=== PATIENT | male | born 1975 ===

== ENCOUNTER 2020-05-31 09:41 | Emergency (ER) | payer OTHER ==
[2020-05-31] MEDS ORDERED: Sodium Chloride 0.9% 10 ML Syringe FLUSH PRN (10:03)
[2020-05-31] MEDS ORDERED: Ondansetron 4 MG/2 ML SDV IVPUSH ONE (10:04)
[2020-05-31] MEDS ORDERED: Sodium Chloride 0.9% 1,000 ML IV ONE (10:04)
[2020-05-31] MEDS ORDERED: Pantoprazole 40 MG Vial IVPUSH ONE (10:05)
--- NOTE | 2020-05-31 10:12 | EDM.PDOC ---
ED HPI GENERAL MEDICAL PROBLEM - General Chief Complaint: Abdominal Pain Stated Complaint: VOMITTING BLOOD DIZZY WEAK DIABETIC Time Seen by Provider: 05/31/20 10:00 Source of Information: Reports: Patient History Limitations: Reports: No Limitations - History of Present Illness INITIAL COMMENTS - FREE TEXT/NARRATIVE: Patient is here for nausea and vomiting. He has a history of cirrhosis and esophageal varicies with bleeding in the past. He was drinking last night and began to vomit this morning around 9 am. The vomit had blood in it so he came in for evaluation. He is also a poorly controlled diabetic with his glucose >500 on arrival. Onset: Today Abdomen Pain Score (Numeric/FACES): 8 - Related Data Allergies Allergy/AdvReac Type Severity Reaction Status Date / Time Penicillins Allergy Rash Verified 05/31/20 10:29 Home Meds: Home Meds . [Unable to Verify Home Med List] 05/31/20 [History] ED ROS GENERAL - Review of Systems Review Of Systems: Comprehensive ROS is negative, except as noted in HPI. ED EXAM, GI/ABD - Physical Exam Exam: See Below Exam Limited By: No Limitations General Appearance: Alert Eyes: Bilateral: Normal Appearance Ears: Normal External Exam Head: Atraumatic, Normocephalic Neck: Normal Inspection, Supple, Non-Tender, Full Range of Motion Respiratory/Chest: No Respiratory Distress, Lungs Clear, Normal Breath Sounds, No Accessory Muscle Use, Chest Non-Tender Cardiovascular: Normal Peripheral Pulses, Regular Rate, Rhythm, No Murmur, No Rub GI/Abdominal Exam: Normal Bowel Sounds, Soft, No Distention, Tender (ruq and llq). No: Guarding, Rebound (Male) Exam: Deferred Rectal (Males) Exam: Deferred Extremities: Normal Inspection, Normal Range of Motion Neurological: Alert, Oriented, Normal Cognition, Normal Gait Psychiatric: Normal Affect, Normal Mood Skin Exam: Warm, Dry, Intact, Normal Color, No Rash Lymphatic: No Adenopathy Course - Vital Signs Last Recorded V/S: Last Vital Signs Temp 98.4 F 05/31/20 10:29 Pulse 118 H 05/31/20 10:29 Resp 22 H 05/31/20 10:29 BP 127/106 H 05/31/20 10:29 Pulse Ox 100 05/31/20 10:29 - Orders/Labs/Meds Orders: Active Orders 24 hr Category Date Time Status Peripheral IV Care [RC] . DIRECTED Care 05/31/20 10:04 Active CULTURE BLOOD [BC] Stat Lab 05/31/20 10:04 Ordered CULTURE BLOOD [BC] Stat Lab 05/31/20 10:04 Received Sodium Chloride 0.9% [Saline Flush] Med 05/31/20 10:03 Active 10 ml FLUSH ASDIRECTED PRN Blood Culture x2 Reflex Set [OM.PC] Stat Oth 05/31/20 10:03 Ordered Peripheral IV Insertion Adult [OM.PC] Stat Oth 05/31/20 10:03 Ordered Medication Orders Sodium Chloride (Saline Flush) 10 ml FLUSH ASDIRECTED PRN PRN Reason: Keep Vein Open Last Admin: 05/31/20 10:13 Dose: 10 ml Documented by: ROI Labs: Laboratory Tests 05/31/20 05/31/20 05/31/20 Range/Units 10:04 10:04 10:04 WBC 7.9 (5.0-10.0) 10^3/uL RBC 3.53 L (4.6-6.2) 10^6/uL Hgb 8.3 L (14.0-18.0) g/dL Hct 27.4 L (40.0-54.0) % MCV 77.6 L (80-100) fL MCH 23.5 L (27.0-34.0) pg MCHC 30.3 L (33.0-35.0) g/dL Plt Count 98 L (150-450) 10^3/uL Neut % (Auto) 80.3 H (42.2-75.2) % Lymph % (Auto) 7.8 L (20.5-50.1) % [place] % (Auto) 10.3 H (2-8) % Eos % (Auto) 1.1 (1.0-3.0) % Baso % (Auto) 0.5 (0.0-1.0) % Sodium 132 L (136-145) mmol/L Potassium 3.8 (3.5-5.1) mmol/L Chloride 97 L (98-107) mmol/L Carbon Dioxide 23 (21-32) mmol/L Anion Gap 15.8 H (7-13) mEq/L BUN 7 (7-18) mg/dL Creatinine 1.09 (0.70-1.30) mg/dL Est Cr Clr Drug Dosing TNP Estimated GFR (MDRD) > 60 BUN/Creatinine Ratio 6.4 (No establ ref range) Glucose 554 H* (74-99) mg/dL Lactic Acid 4.5 H* (0.4-2.0) mmol/L Calcium 7.8 L (8.5-10.1) mg/dL Total Bilirubin 2.1 H (0.2-1.0) mg/dL AST 26 (15-37) U/L ALT 27 (16-63) U/L Alkaline Phosphatase 161 H (46-116) U/L Total Protein 6.2 L (6.4-8.2) g/dL Albumin 2.8 L (3.4-5.0) g/dL Globulin 3.4 Albumin/Globulin Ratio 0.82 Urine Color (YELLOW) Urine Appearance (CLEAR) Urine pH (5.0-9.0) Ur Specific [place] (1.005-1.030) Urine Protein (NEGATIVE) Urine Glucose (UA) (NEGATIVE) Urine Ketones (NEGATIVE) Urine Occult Blood (NEGATIVE) Urine Nitrite (NEGATIVE) Urine Bilirubin (NEGATIVE) Urine Urobilinogen (0.2-1.0) mg/dL Ur Leukocyte Esterase (NEGATIVE) Urine RBC /HPF Urine WBC (0-5/HPF) /HPF Ur Epithelial Cells (NOT SEEN) /HPF Amorphous Sediment (NOT SEEN) /HPF Urine Bacteria (0-FEW/HPF) /HPF Urine Mucus (NOT SEEN) /LPF Urine Other Urine Opiates Screen (NEGATIVE) Ur Oxycodone Screen (NEGATIVE) Urine Methadone Screen (NEGATIVE) Ur Barbiturates Screen (NEGATIVE) U Tricyclic Antidepress (NEGATIVE) Ur Phencyclidine Scrn (NEGATIVE) Ur Amphetamine Screen (NEGATIVE) U Methamphetamines Scrn (NEGATIVE) Urine MDMA Screen (NEGATIVE) U Benzodiazepines Scrn (NEGATIVE) Urine Cocaine Screen (NEGATIVE) U Marijuana (THC) Screen (NEGATIVE) Ethyl Alcohol < 3 (0) mg/dL 05/31/20 05/31/20 Range/Units 10:26 10:26 WBC (5.0-10.0) 10^3/uL RBC (4.6-6.2) 10^6/uL Hgb (14.0-18.0) g/dL Hct (40.0-54.0) % MCV (80-100) fL MCH (27.0-34.0) pg MCHC (33.0-35.0) g/dL Plt Count (150-450) 10^3/uL Neut % (Auto) (42.2-75.2) % Lymph % (Auto) (20.5-50.1) % [place] % (Auto) (2-8) % Eos % (Auto) (1.0-3.0) % Baso % (Auto) (0.0-1.0) % Sodium (136-145) mmol/L Potassium (3.5-5.1) mmol/L Chloride (98-107) mmol/L Carbon Dioxide (21-32) mmol/L Anion Gap (7-13) mEq/L BUN (7-18) mg/dL Creatinine (0.70-1.30) mg/dL Est Cr Clr Drug Dosing Estimated GFR (MDRD) BUN/Creatinine Ratio (No establ ref range) Glucose (74-99) mg/dL Lactic Acid (0.4-2.0) mmol/L Calcium (8.5-10.1) mg/dL Total Bilirubin (0.2-1.0) mg/dL AST (15-37) U/L ALT (16-63) U/L Alkaline Phosphatase (46-116) U/L Total Protein (6.4-8.2) g/dL Albumin (3.4-5.0) g/dL Globulin Albumin/Globulin Ratio Urine Color Yellow (YELLOW) Urine Appearance Clear (CLEAR) Urine pH 6.5 (5.0-9.0) Ur Specific [place] 1.010 (1.005-1.030) Urine Protein Negative (NEGATIVE) Urine Glucose (UA) >=1000 H (NEGATIVE) Urine Ketones Negative (NEGATIVE) Urine Occult Blood Trace-intact H (NEGATIVE) Urine Nitrite Negative (NEGATIVE) Urine Bilirubin Negative (NEGATIVE) Urine Urobilinogen 0.2 (0.2-1.0) mg/dL Ur Leukocyte Esterase Negative (NEGATIVE) Urine RBC 0-5 /HPF Urine WBC 0-5 (0-5/HPF) /HPF Ur Epithelial Cells Rare (NOT SEEN) /HPF Amorphous Sediment Rare (NOT SEEN) /HPF Urine Bacteria Rare (0-FEW/HPF) /HPF Urine Mucus Rare (NOT SEEN) /LPF Urine Other See note Urine Opiates Screen Negative (NEGATIVE) Ur Oxycodone Screen Negative (NEGATIVE) Urine Methadone Screen Negative (NEGATIVE) Ur Barbiturates Screen Negative (NEGATIVE) U Tricyclic Antidepress Negative (NEGATIVE) Ur Phencyclidine Scrn Negative (NEGATIVE) Ur Amphetamine Screen Negative (NEGATIVE) U Methamphetamines Scrn Positive H (NEGATIVE) Urine MDMA Screen Negative (NEGATIVE) U Benzodiazepines Scrn Negative (NEGATIVE) Urine Cocaine Screen Negative (NEGATIVE) U Marijuana (THC) Screen Negative (NEGATIVE) Ethyl Alcohol (0) mg/dL Meds: Medications Generic Name Dose Route Start Last Admin Trade Name Freq PRN Reason Stop Dose Admin Sodium Chloride 10 ml 05/31/20 10:03 05/31/20 10:13 Saline Flush FLUSH 10 ml ASDIRECTED PRN Administration Keep Vein Open Discontinued Medications Generic Name Dose Route Start Last Admin Trade Name Freq PRN Reason Stop Dose Admin Sodium Chloride 1,000 mls @ 999 mls/hr 05/31/20 10:04 05/31/20 10:09 Normal Saline IV 05/31/20 11:04 999 mls/hr .BOLUS ONE Administration Iopamidol 100 ml 05/31/20 10:18 05/31/20 10:55 Isovue-300 (61%) IVPUSH 05/31/20 10:19 100 ml ONETIME ONE Administration Ondansetron HCl 4 mg 05/31/20 10:04 05/31/20 10:13 Zofran IVPUSH 05/31/20 10:05 4 mg ONETIME ONE Administration Pantoprazole Sodium 40 mg 05/31/20 10:05 05/31/20 10:13 Protonix Iv IVPUSH 05/31/20 10:06 40 mg ONETIME ONE Administration - Re-Assessments/Exams Free Text/Narrative Re-Assessment/Exam: Patient would not hold still for CT. CT showed possible gallbladder inflammation. Patient removed his IV and left before results could be discussed. 05/31/20 11:56 Departure - Departure Time of Disposition: 11:58 Disposition: Against Medical Advice 07 Clinical Impression: Cholecystitis Acute drug intoxication Qualifiers: Complication of substance-induced condition: with unspecified complication Qualified Code(s): F19.929 - Other psychoactive substance use, unspecified with intoxication, unspecified - Discharge Information Forms: ED Department Discharge Additional Instructions: pt left ama prior to discussing lab and ct results Sepsis Event Note (ED) - Focused Exam Vital Signs: Vital Signs Temp Pulse Resp BP Pulse Ox 05/31/20 10:29 98.4 F 118 H 22 H 127/106 H 100 - My Orders Last 24 Hours: My Active Orders 05/31/20 10:03 Sodium Chloride 0.9% [Saline Flush] 10 ml FLUSH ASDIRECTED PRN Blood Culture x2 Reflex Set [OM.PC] Stat Peripheral IV Insertion Adult [OM.PC] Stat 05/31/20 10:04 Peripheral IV Care [RC] . DIRECTED CULTURE BLOOD [BC] Stat CULTURE BLOOD [BC] Stat - Assessment/Plan Last 24 Hours: My Active Orders 05/31/20 10:03 Sodium Chloride 0.9% [Saline Flush] 10 ml FLUSH ASDIRECTED PRN Blood Culture x2 Reflex Set [OM.PC] Stat Peripheral IV Insertion Adult [OM.PC] Stat 05/31/20 10:04 Peripheral IV Care [RC] . DIRECTED CULTURE BLOOD [BC] Stat CULTURE BLOOD [BC] Stat
[2020-05-31] MEDS ORDERED: Iopamidol 612 MG/ML 100 ML Bottle IVPUSH ONE (10:18)
[2020-05-31 10:41] LABS: ANION GAP 15.8 mEq/L (7-13); CHLORIDE,CL 97 mmol/L (98-107); SODIUM,NA 132 mmol/L (136-145)
--- NOTE | 2020-05-31 11:39 | CT ---
EXAMINATION: Abdomen Pelvis w Cont SEX: Male AGE: 44 years CLINICAL HISTORY: 44-year-old male with positive drug screen (meth), abdominal pain, bloody emesis. Scan technique: Volume acquisition of data emergency CT scan abdomen/pelvis obtained without oral contrast but "intravenous administration 100 cc nonionic Isovue contrast at 3 cc/s through 18-gauge needle" while patient was lying supine on the Siemens multi slice scanner [employer], [place]. All data archived in the PACS system for storage, reformatting axial/sagittal/coronal planes, study. INTERPRETATION: 1. Large cluster of metallic foreign bodies midepigastrium around the GE junction i.e. surgery. 2. Stomach distended with fluid like products. Apparent gallbladder (RUQ) inhomogeneously dense i.e. possible noncalcified stones and/or inflammation. (Coronal imaging slices #26; sagittal #54; axial #32). 3. Motion artifact but the pancreas grossly unremarkable. Liver spleen adrenal glands and kidneys unremarkable except for apparent 15 mm diameter upper pole cyst left kidney. No signs of nephrolithiasis or obstructive uropathy. Symmetrically distended unenhanced urinary bladder. 4. No abdominal or pelvic mass lesion. No mesenteric or retroperitoneal lymphadenopathy. No signs of inflammatory "dirty" peritoneal fat, mechanical bowel obstruction, ascites or free intraperitoneal air. Normal appendix and terminal ileum RLQ. No ventral wall hernias. Small and large intestine unremarkable. 5. Lung bases clear. Normal cardiac silhouette. No pericardial or pleural effusions. 6. Atheromatous calcifications normal caliber aortoiliac vessels. No aneurysm or dissection. Spondylosis. CONCLUSION: Technically suboptimal exam (motion artifact and poor contrast-enhancement) revealing suspicious gallbladder. Epigastric surgery. No signs of intraperitoneal malignancy, mechanical bowel obstruction, or acute peritonitis. Lung bases clear.
== END 2020-05-31 12:00 | disposition left against medical advice (07) ==
LOC: DL.ED 09:41
DX: K81.9 Cholecystitis, unspecified (principal); F15.129 Other stimulant abuse with intoxication, unspecified; Z88.0 Allergy status to penicillin
CPT/HCPCS: 36415; 74177; 80053; 80305; 80307; 81001; 82962; 83605; 85025; 87040; 96374; 96375; 99283; 99284; C9113; J2405; J7030; Q9967